=== PATIENT | male | born 1935 | race Two or more races ===

== ENCOUNTER 2020-08-25 11:33 | Outpatient (REF) | payer MEDICARE, SELFPAY ==
[2020-08-25 14:02] LABS: Hematocrit 44.7 % (42-52); Hemoglobin 14.6 g/dl (14.0-18.0); Mean Corpuscular HGB Conc 32.7 g/dl (31.0-36.0); Mean Corpuscular Hemoglobin 29.3 pg (27.0-33.0); Mean Corpuscular Volume 89.8 fL (80-98); Mean Platelet Volume 10.5 fL (9.4-12.4); Platelet Count 208 X10*3/uL (160-400); Red Blood Count 4.98 X10*6/uL (4.60-5.80); Red Cell Distribution Width 13.6 % (11.0-16.0); White Blood Count 9.2 X10*3/uL (4.8-10.8)
[2020-08-25 14:33] LABS: Alanine Aminotransferase 12 U/L (0-40); Albumin Level 3.9 g/dL (3.5-5.0); Alkaline Phosphatase 107 U/L (39-117); Anion Gap 14 (12-20); Aspartate Amino Transferase 15 U/L (5-37); Bilirubin Total 0.8 mg/dL (0.0-1.0); Blood Urea Nitrogen 19 mg/dL (9-16); Calcium 8.8 mg/dL (8.4-10.2); Carbon Dioxide 25 mmol/L (22-29); Chloride 106 mmol/L (96-108); Cholesterol 190 mg/dL; Estimated Glomerular Filt Rate > 60; Glucose Fasting 108 mg/dL (60-99); HDL Cholesterol 52 mg/dL; LDL Cholesterol Calculated 127 mg/dl; Potassium 4.5 mmol/L (3.3-5.1); Sodium 140 mmol/L (135-145); Total Protein 7.2 g/dL (6.5-8.0); Triglycerides 58 mg/dL
[2020-08-25 15:04] LABS: TSH reflex Free T4 1.68 uIU/mL (0.32-4.0)
== END 2020-08-25 11:34 | disposition home or self-care (01) ==
LOC: HO.HMGCLDS 11:33
PROVIDERS: PCP Internal Medicine; Visit Provider Internal Medicine
DX: E05.90 Thyrotoxicosis, unspecified without thyrotoxic crisis or storm (principal); I10 Essential (primary) hypertension; N40.0 Benign prostatic hyperplasia without lower urinary tract symptoms
CPT/HCPCS: 36415; 80053; 80061; 84443; 85027

== ENCOUNTER 2021-03-02 09:48 | Outpatient (REF) | payer MEDICARE, SELFPAY ==
[2021-03-02 12:01] LABS: Anion Gap 11 (12-20); Blood Urea Nitrogen 18 mg/dL (9-16); Calcium 8.9 mg/dL (8.4-10.2); Carbon Dioxide 27 mmol/L (22-29); Chloride 104 mmol/L (96-108); Estimated Glomerular Filt Rate 53; Glucose Random 118 mg/dL (60-115); Potassium 4.4 mmol/L (3.3-5.1); Sodium 138 mmol/L (135-145)
[2021-03-02 12:14] LABS: TSH reflex Free T4 3.77 uIU/mL (0.32-4.0)
== END 2021-03-02 09:49 | disposition home or self-care (01) ==
LOC: HO.HMGCLDS 09:48
PROVIDERS: PCP Internal Medicine; Visit Provider Internal Medicine
DX: E05.90 Thyrotoxicosis, unspecified without thyrotoxic crisis or storm (principal); I10 Essential (primary) hypertension; N40.0 Benign prostatic hyperplasia without lower urinary tract symptoms
CPT/HCPCS: 36415; 80048; 84443

== ENCOUNTER 2021-06-01 13:20 | Outpatient (REF) | payer MEDICARE, SELFPAY ==
--- NOTE | ~2021-06-01 | US_ITS ---
EXAMINATION: US VENOUS ULTRASOUND WITH DOPPLER LOWER EXTREMITY, RIGHT CLINICAL INFORMATION: Right leg pain COMPARISON: None TECHNIQUE: Ultrasound of the deep veins is performed from the hip to the calf with compression sonography and color and pulse Doppler assessment. Spectral analysis with color-flow imaging is performed. FINDINGS: The right common femoral, profunda and superficial femoral vein in the mid and upper thigh are patent. There is enlargement, hypoechoic material, absent flow and decreased compression of the superficial femoral vein in the distal thigh, and the popliteal vein and peroneal veins suggestive of acute DVT. The posterior tibial vein in the right calf is patent. There is no Jarquin's cyst. US/US venous duplex LE RT IMPRESSION: DVT in the right superficial femoral vein in the distal thigh, popliteal vein and peroneal veins. Findings were communicated to the nurse in Dr Gee's office Kathrin by the optometric technologist at the completion of the exam.
== END 2021-06-01 13:21 | disposition home or self-care (01) ==
LOC: HO.HMGCX 13:20
PROVIDERS: Visit Provider Internal Medicine
DX: M79.604 Pain in right leg (principal); M79.89 Other specified soft tissue disorders
CPT/HCPCS: 93971

== ENCOUNTER 2021-06-19 09:26 | Outpatient (REF) | payer MEDICARE, SELFPAY ==
[2021-06-19 11:51] LABS: Hematocrit 41.9 % (42.0-52.0); Hemoglobin 13.4 g/dl (14.0-18.0); Mean Corpuscular Hemoglobin 28.6 pg (27.0-33.0); Mean Corpuscular Volume 89.5 fL (80.0-98.0); Mean Platelet Volume 10.4 fL (9.4-12.4); Platelet Count 292 X10*3/uL (160-400); Red Blood Count 4.68 X10*6/uL (4.60-5.80); Red Cell Distribution Width 14.5 % (11.0-16.0); White Blood Count 8.5 X10*3/uL (4.8-10.8)
[2021-06-19 12:18] LABS: Alanine Aminotransferase 31 U/L (0-40); Albumin Level 3.5 g/dL (3.5-5.0); Alkaline Phosphatase 106 U/L (39-117); Anion Gap 13 (12-20); Aspartate Amino Transferase 21 U/L (5-37); Bilirubin Total 0.6 mg/dL (0.0-1.0); Blood Urea Nitrogen 17 mg/dL (9-16); Calcium 9.1 mg/dL (8.4-10.2); Carbon Dioxide 25 mmol/L (22-29); Chloride 105 mmol/L (96-108); Estimated Glomerular Filt Rate > 60; Glucose Fasting 157 mg/dL (60-99); Potassium 4.1 mmol/L (3.3-5.1); Sodium 139 mmol/L (135-145); Total Protein 7.4 g/dL (6.5-8.0)
== END 2021-06-19 09:27 | disposition home or self-care (01) ==
LOC: HO.HMGCLDS 09:26
PROVIDERS: Visit Provider Internal Medicine
DX: E05.90 Thyrotoxicosis, unspecified without thyrotoxic crisis or storm (principal); I10 Essential (primary) hypertension; I82.409 Acute embolism and thrombosis of unspecified deep veins of unspecified lower extremity
CPT/HCPCS: 36415; 80053; 85027

== ENCOUNTER 2021-08-31 11:01 | Outpatient (REF) | payer MEDICARE, SELFPAY ==
[2021-08-31 13:49] LABS: Hematocrit 42.5 % (42.0-52.0); Hemoglobin 14.1 g/dl (14.0-18.0); Mean Corpuscular HGB Conc 33.2 g/dl (31.0-36.0); Mean Corpuscular Hemoglobin 29.6 pg (27.0-33.0); Mean Corpuscular Volume 89.3 fL (80.0-98.0); Mean Platelet Volume 10.4 fL (9.4-12.4); Platelet Count 209 X10*3/uL (160-400); Red Blood Count 4.76 X10*6/uL (4.60-5.80); White Blood Count 8.6 X10*3/uL (4.8-10.8)
[2021-08-31 13:57] LABS: Alanine Aminotransferase 12 U/L (0-40); Albumin Level 3.8 g/dL (3.5-5.0); Alkaline Phosphatase 88 U/L (39-117); Anion Gap 11 (12-20); Aspartate Amino Transferase 16 U/L (5-37); Bilirubin Total 0.7 mg/dL (0.0-1.0); Blood Urea Nitrogen 21 mg/dL (9-16); Calcium 9.2 mg/dL (8.4-10.2); Carbon Dioxide 25 mmol/L (22-29); Chloride 106 mmol/L (96-108); Cholesterol 208 mg/dL; Estimated Glomerular Filt Rate 56; Glucose Fasting 116 mg/dL (60-99); HDL Cholesterol 54 mg/dL; LDL Cholesterol Calculated 142 mg/dl; Potassium 4.2 mmol/L (3.3-5.1); Sodium 138 mmol/L (135-145); Total Protein 7.3 g/dL (6.5-8.0); Triglycerides 63 mg/dL
[2021-08-31 14:04] LABS: Estimated Average Glucose 120 mg/dL; Hemoglobin A1c % 5.8 %
[2021-08-31 14:23] LABS: TSH reflex Free T4 2.52 uIU/mL (0.32-4.0)
== END 2021-08-31 11:02 | disposition home or self-care (01) ==
LOC: HO.HMGCLDS 11:01
PROVIDERS: Visit Provider Internal Medicine
DX: E05.90 Thyrotoxicosis, unspecified without thyrotoxic crisis or storm (principal); I10 Essential (primary) hypertension
CPT/HCPCS: 36415; 80053; 80061; 83036; 84443; 85027

== ENCOUNTER 2022-03-08 11:45 | Outpatient (REF) | payer MEDICARE, SELFPAY ==
[2022-03-08 14:18] LABS: Estimated Average Glucose 117 mg/dL; Hemoglobin A1c % 5.7 %
[2022-03-08 14:22] LABS: Alanine Aminotransferase 16 U/L (0-40); Alkaline Phosphatase 105 U/L (39-117); Anion Gap 15 (12-20); Aspartate Amino Transferase 16 U/L (5-37); Bilirubin Total 0.8 mg/dL (0.0-1.0); Blood Urea Nitrogen 22 mg/dL (9-16); Calcium 8.9 mg/dL (8.4-10.2); Carbon Dioxide 24 mmol/L (22-29); Chloride 104 mmol/L (96-108); Cholesterol 215 mg/dL; Estimated Glomerular Filt Rate 56; Glucose Fasting 107 mg/dL (60-99); HDL Cholesterol 57 mg/dL; LDL Cholesterol Calculated 146 mg/dl; Potassium 4.5 mmol/L (3.3-5.1); Sodium 138 mmol/L (135-145); Total Protein 7.6 g/dL (6.5-8.0); Triglycerides 60 mg/dL
[2022-03-08 14:44] LABS: TSH reflex Free T4 2.38 uIU/mL (0.32-4.0)
== END 2022-03-08 11:46 | disposition home or self-care (01) ==
LOC: HO.HMGCLDS 11:45
PROVIDERS: PCP Internal Medicine; Visit Provider Internal Medicine
DX: Z00.00 Encounter for general adult medical examination without abnormal findings (principal); E05.90 Thyrotoxicosis, unspecified without thyrotoxic crisis or storm; I10 Essential (primary) hypertension
CPT/HCPCS: 36415; 80053; 80061; 83036; 84443

== ENCOUNTER 2022-09-03 08:33 | Outpatient (REF) | payer MEDICARE, SELFPAY ==
[2022-09-03 11:50] LABS: Estimated Average Glucose 123 mg/dL; Hemoglobin A1C 163.8212 umol/L; Hemoglobin A1c % 5.9 %
[2022-09-03 12:21] LABS: Alanine Aminotransferase 14 U/L (0-40); Alkaline Phosphatase 108 U/L (39-117); Anion Gap 15 (12-20); Aspartate Amino Transferase 15 U/L (5-37); Bilirubin Total 0.7 mg/dL (0.0-1.0); Blood Urea Nitrogen 22 mg/dL (9-16); Calcium 9.2 mg/dL (8.4-10.2); Carbon Dioxide 23 mmol/L (22-29); Chloride 106 mmol/L (96-108); Cholesterol 217 mg/dL; Estimated Glomerular Filt Rate 57; Glucose Fasting 118 mg/dL (60-99); HDL Cholesterol 57 mg/dL; LDL Cholesterol Calculated 147 mg/dl; Potassium 4.5 mmol/L (3.3-5.1); Sodium 139 mmol/L (135-145); TSH reflex Free T4 3.35 uIU/mL (0.32-4.0); Total Protein 7.5 g/dL (6.5-8.0); Triglycerides 65 mg/dL
== END 2022-09-03 08:34 | disposition home or self-care (01) ==
LOC: HO.HMGCLDS 08:33
PROVIDERS: PCP Internal Medicine; Visit Provider Internal Medicine
DX: Z00.00 Encounter for general adult medical examination without abnormal findings (principal); E05.90 Thyrotoxicosis, unspecified without thyrotoxic crisis or storm; I10 Essential (primary) hypertension; R73.9 Hyperglycemia, unspecified
CPT/HCPCS: 36415; 80053; 80061; 83036; 84443

== ENCOUNTER 2023-03-11 07:43 | Outpatient (REF) | payer MEDICARE, SELFPAY ==
[2023-03-11 11:22] LABS: MANUAL DIFF FLAG NO
[2023-03-11 11:44] LABS: Basophils Absolute Auto 0.1 X10*3/uL (0.0-0.2); Basophils Percent Auto 1.2 % (0-2); Eosinophils Percent Auto 10.6 % (0-4); Hematocrit 44.8 % (42.0-52.0); Hemoglobin 14.5 g/dl (14.0-18.0); Imm Gran Abs Auto 0.05 X10*3/uL (0.00-0.03); Imm Gran Pct Auto 0.5 % (0.0-0.4); Lymphocytes Absolute Auto 2.5 X10*3/uL (1.2-4.9); Lymphocytes Percent Auto 25.8 % (20-40); Mean Corpuscular HGB Conc 32.4 g/dl (31.0-36.0); Mean Corpuscular Hemoglobin 29.1 pg (27.0-33.0); Mean Corpuscular Volume 89.8 fL (80.0-98.0); Mean Platelet Volume 10.1 fL (9.4-12.4); Monocytes Absolute Auto 0.9 X10*3/uL (0.1-1.2); Monocytes Percent Auto 9.7 % (2-11); Neutrophils Absolute Auto 5.1 x10*3/uL (2.0-8.3); Neutrophils Percent Auto 52.2 % (45-73); Platelet Count 215 X10*3/uL (160-400); Red Blood Count 4.99 X10*6/uL (4.60-5.80); Red Cell Distribution Width 13.3 % (11.0-16.0); White Blood Count 9.7 X10*3/uL (4.8-10.8)
[2023-03-11 11:54] LABS: Estimated Average Glucose 117 mg/dL; Hemoglobin A1c % 5.7 % (<6.0)
[2023-03-11 12:06] LABS: Alanine Aminotransferase 13 U/L (0-40); Albumin Level 3.8 g/dL (3.5-5.0); Alkaline Phosphatase 105 U/L (39-117); Anion Gap 11 (12-20); Aspartate Amino Transferase 17 U/L (5-37); Bilirubin Total 0.6 mg/dL (0.0-1.0); Blood Urea Nitrogen 22 mg/dL (9-16); Calcium 9.1 mg/dL (8.4-10.2); Carbon Dioxide 26 mmol/L (22-29); Chloride 107 mmol/L (96-108); Cholesterol 169 mg/dL (<200); Estimated Glomerular Filt Rate 57; Glucose Fasting 116 mg/dL (60-99); HDL Cholesterol 55 mg/dL (>40); LDL Cholesterol Calculated 101 mg/dL (<100); Potassium 4.5 mmol/L (3.3-5.1); Sodium 139 mmol/L (135-145); Total Protein 7.7 g/dL (6.5-8.0); Triglycerides 69 mg/dL (<150)
[2023-03-11 12:33] LABS: TSH reflex Free T4 4.72 uIU/mL (0.32-4.0)
[2023-03-11 13:03] LABS: Free T4 (Free Thyroxine) 0.98 ng/dL (0.71-1.85)
== END 2023-03-11 07:44 | disposition home or self-care (01) ==
LOC: HO.HMGCLDS 07:43
PROVIDERS: PCP Internal Medicine; Visit Provider Internal Medicine
DX: R73.9 Hyperglycemia, unspecified (principal); E05.90 Thyrotoxicosis, unspecified without thyrotoxic crisis or storm; E78.5 Hyperlipidemia, unspecified; I10 Essential (primary) hypertension
CPT/HCPCS: 36415; 80053; 80061; 83036; 84439; 84443; 85025

== ENCOUNTER 2023-03-15 08:23 | Outpatient (AMB) | payer MEDICARE, SELFPAY ==
[2023-03-15 08:30] VITALS: BP 130/80; PULSE 72; O2SAT 96; BMI 28.8
--- NOTE | 2023-03-15 08:30 | A.OFFPC_ITS ---
Vital Signs 03/15/23 08:30 Height 5 ft 7 in Weight 184 lb BMI 28.8 BP 130/80 Blood Pressure Location Lt brachial Position Sitting Pulse 72 Pulse Source Pulse Oximeter Pulse Oximetry (%) 96 Oxygen Delivery Method Room Air Intake Visit Reasons: Annual Physical Allergies No Known Allergies Allergy (Verified 03/08/22 10:54) Medication List - Last Reconciled 03/15/23 by Elizabeth Gee MD amlodipine 10 mg PO DAILY apixaban (Eliquis) 5 mg PO BID methimazole 5 mg PO DAILY pravastatin 20 mg PO DAILY tamsulosin 0.4 mg PO DAILY Tobacco use date assessed: 06/09/21 HPI Annual Physical HPI Details Pt presents for PE. COUNTS INCLUDE 234 BEDS AT THE [facility] Medical History (Updated 03/15/23 @ 09:00 by Elizabeth Gee MD) DVT (deep venous thrombosis) Pain and swelling of right lower extremity Annual physical exam Hyperthyroidism BPH (benign prostatic hyperplasia) HTN (hypertension) Surgical History No pertinent past surgical history Family History Father No problems noted. Mother No problems noted. Social History Housing: House Patient Tobacco Use Status: Former Tobacco user (15 years ago) e-Cigarette/Vaping Use: Never Used Current occupational status: retired Cognitive needs: No Hearing needs: No Vision needs: No Questionnaire Thrive Questionnaire Date Thrive assessed: 09/08/22 TORI-7 AMB Questionnaire TORI-7 Date TORI - 7 assessed: 09/08/22 Source: Developed by Drs. Liban Lutz, Jackelyn Mckinley, Prasad Maria and colleagues, with an educational cruz from [employer]. Review of Systems Const All systems reviewed & are unremarkable except as noted in HPI and below Reports no additional complaints Eyes Reports no additional complaints ENT Reports no additional complaints Card Reports no additional complaints Resp Reports no additional complaints GI Reports no additional complaints Reports no additional complaints Physical exam (Primary Care) Vital Signs: Last Vital Signs Pulse 72 03/15/23 08:30 BP 130/80 03/15/23 08:30 Pulse Ox 96 03/15/23 08:30 Oxygen Delivery Method Room Air 03/15/23 08:30 BMI result Body Mass Index 28.8 Tobacco/Smoking Status: Tobacco use Status Tobacco use date assessed 06/09/21 03/15/23 08:32 Patient Tobacco Use Status Former Tobacco user (15 03/15/23 08:32 years ago) e-Cigarette/Vaping Use Never Used 03/15/23 08:32 Thrive Assessment: Date of Thrive Assessment Date Thrive assessed 09/08/22 03/15/23 08:32 Const General: no acute distress HENMT Head: Yes normal to inspection Ears: hearing grossly normal bilaterally Mouth: Normal oral and palatal mucosa present Neck Neck: Yes no lymphadenopathy and Yes supple Resp Effort & Inspection: normal respiratory effort Auscultation: clear to auscultation bilaterally Cardio Rhythm: regular rhythm Heart sounds: S1 normal heart sound present and S2 normal heart sound present GI Inspection: Yes normal to inspection Palpation (GI): Soft to palpation Percussion: Yes normal to percussion Auscultation: normal bowel sounds Assessment and Plan Assessment & Plan (1) Hypothyroidism: Code(s): E03.9 - Hypothyroidism, unspecified Plan: PATIENT WAS ADVISED TO TAKE HALF A TABLET OF METHIMAZOLE FOR 2 MONTHS AND REPEAT TSH (2) Hyperlipidemia: Code(s): E78.5 - Hyperlipidemia, unspecified Plan: Continue pravastatin (3) Hyperglycemia: Code(s): R73.9 - Hyperglycemia, unspecified Plan: A1c is 5.7, continue ADA diet regular physical activity follow-up in 6 months with a fasting labs before (4) Annual physical exam: Code(s): Z00.00 - Encounter for general adult medical examination without abnormal findings Plan: Well-balanced diet regular physical activity discussed with the patient (5) HTN (hypertension): Code(s): I10 - Essential (primary) hypertension Plan: Continue amlodipine Orders: Orders TSH reflex Free T4 2 Months E03.9 - Hypothyroidism, unspecified Comprehensive [place]. Panel Fast 6 Months E03.9 - Hypothyroidism, unspecified, E78.5 - Hyperlipidemia, unspecified, I10 - Essential (primary) hypertension, R73.9 - Hyperglycemia, unspecified Lipid Panel 6 Months E03.9 - Hypothyroidism, unspecified, E78.5 - Hyperlipidemia, unspecified, I10 - Essential (primary) hypertension, R73.9 - Hyperglycemia, unspecified Hemoglobin A1c 6 Months E03.9 - Hypothyroidism, unspecified, E78.5 - Hyperlipidemia, unspecified, I10 - Essential (primary) hypertension, R73.9 - Hyperglycemia, unspecified Complete Blood Count Auto Diff 6 Months E03.9 - Hypothyroidism, unspecified, E78.5 - Hyperlipidemia, unspecified, I10 - Essential (primary) hypertension, R73.9 - Hyperglycemia, unspecified TSH reflex Free T4 6 Months E03.9 - Hypothyroidism, unspecified, E78.5 - Hyper lipidemia, unspecified, I10 - Essential (primary) hypertension, R73.9 - Hyperglycemia, unspecified Coding Level of Care Code Est Pt Prev Care >65y(74448) Diagnoses Hypothyroidism E03.9 Hyperlipidemia E78.5 Hyperglycemia R73.9 Annual physical exam Z00.00 HTN (hypertension) I10
== END 2023-03-15 09:21 | disposition home or self-care (01) ==
PROVIDERS: Visit Provider Internal Medicine
DX: Z00.00 Encounter for general adult medical examination without abnormal findings (principal); E03.9 Hypothyroidism, unspecified; E78.5 Hyperlipidemia, unspecified; R73.9 Hyperglycemia, unspecified; I10 Essential (primary) hypertension
CPT/HCPCS: 99397

== ENCOUNTER 2023-05-30 10:27 | Outpatient (REF) | payer MEDICARE, SELFPAY | END 2023-05-30 10:28 | disposition home or self-care (01) | LOC: HO.HMGCLDS 10:27 | PROVIDERS: PCP Internal Medicine; Visit Provider Internal Medicine | DX: E03.9 Hypothyroidism, unspecified (principal) | CPT/HCPCS: 36415; 84443 ==

== ENCOUNTER 2023-09-09 08:30 | Outpatient (REF) | payer MEDICARE, SELFPAY ==
[2023-09-09 10:39] LABS: MANUAL DIFF FLAG NO
[2023-09-09 10:52] LABS: Basophils Absolute Auto 0.2 X10*3/uL (0.0-0.2); Basophils Percent Auto 1.8 % (0-2); Eosinophils Absolute Auto 1.2 X10*3/uL (0.0-0.4); Eosinophils Percent Auto 14.5 % (0-4); Hematocrit 43.9 % (42.0-52.0); Hemoglobin 14.5 g/dl (14.0-18.0); Imm Gran Abs Auto 0.05 X10*3/uL (0.00-0.03); Imm Gran Pct Auto 0.6 % (0.0-0.4); Lymphocytes Absolute Auto 2.4 X10*3/uL (1.2-4.9); Lymphocytes Percent Auto 28.9 % (20-40); Mean Corpuscular Hemoglobin 29.8 pg (27.0-33.0); Mean Corpuscular Volume 90.3 fL (80.0-98.0); Mean Platelet Volume 10.7 fL (9.4-12.4); Monocytes Absolute Auto 0.8 X10*3/uL (0.1-1.2); Monocytes Percent Auto 9.6 % (2-11); Neutrophils Absolute Auto 3.7 x10*3/uL (2.0-8.3); Neutrophils Percent Auto 44.6 % (45-73); Platelet Count 194 X10*3/uL (160-400); Red Blood Count 4.86 X10*6/uL (4.60-5.80); Red Cell Distribution Width 13.8 % (11.0-16.0); White Blood Count 8.3 X10*3/uL (4.8-10.8)
[2023-09-09 11:11] LABS: Alanine Aminotransferase 13 U/L (0-40); Albumin Level 3.7 g/dL (3.5-5.0); Alkaline Phosphatase 93 U/L (39-117); Anion Gap 12 (12-20); Aspartate Amino Transferase 14 U/L (5-37); Bilirubin Total 0.8 mg/dL (0.0-1.0); Blood Urea Nitrogen 23 mg/dL (9-16); Calcium 9.1 mg/dL (8.4-10.2); Carbon Dioxide 23 mmol/L (22-29); Chloride 108 mmol/L (96-108); Cholesterol 158 mg/dL (<200); Estimated Glomerular Filt Rate 51; Glucose Fasting 111 mg/dL (60-99); HDL Cholesterol 55 mg/dL (>40); LDL Cholesterol Calculated 88 mg/dL (<100); Potassium 4.4 mmol/L (3.3-5.1); Sodium 139 mmol/L (135-145); Total Protein 7.4 g/dL (6.5-8.0); Triglycerides 76 mg/dL (<150)
[2023-09-09 11:15] LABS: Estimated Average Glucose 123 mg/dL; Hemoglobin A1C 148.9622 umol/L; Hemoglobin A1c % 5.9 % (<6.0)
[2023-09-09 11:30] LABS: TSH reflex Free T4 1.73 uIU/mL (0.32-4.0)
== END 2023-09-09 08:31 | disposition home or self-care (01) ==
LOC: HO.HMGCLDS 08:30
PROVIDERS: PCP Internal Medicine; Visit Provider Internal Medicine
DX: E03.9 Hypothyroidism, unspecified (principal); E78.5 Hyperlipidemia, unspecified; R73.9 Hyperglycemia, unspecified; I10 Essential (primary) hypertension
CPT/HCPCS: 36415; 80053; 80061; 83036; 84443; 85025

== ENCOUNTER 2023-09-15 11:57 | Outpatient (AMB) | payer MEDICARE, SELFPAY ==
--- NOTE | 2023-09-15 12:00 | MHC.PC.OV ---
Vital Signs 09/15/23 12:19 Height 5 ft 7 in Weight 189 lb BMI 29.6 BP 100/60 Blood Pressure Location Rt brachial Position Sitting Pulse 69 Pulse Source Pulse Oximeter Pulse Oximetry (%) 95 Oxygen Delivery Method Room Air Intake Visit Reasons: 6 month follow up Intake Note: Pt is here today for his 6mo. f/u Allergies No Known Allergies Allergy (Verified 03/08/22 10:54) Medication List - Last Reconciled 09/15/23 by Elizabeth Gee MD amlodipine 10 mg PO DAILY apixaban (Eliquis) 5 mg PO BID methimazole 5 mg PO DAILY pravastatin 20 mg PO DAILY tamsulosin 0.4 mg PO DAILY Tobacco use date assessed: 09/15/23 Fall risk assessment: No Falls in past year Last assessed Fall Risk: 09/15/23 Dental Screening Dental Screen Date: 09/15/23 Did you have a dental visit in the last 12 months?: Yes Did you have a dental problem in the last 6 months where you did not have access to dental care?: No Was dental information given to patient?: Patient has dentist HPI 6 month follow up HPI Details Pt presents for f/u HTN, hyperlipid, hyperthyroid, stable on meds. [facility] Medical History (Updated 09/15/23 @ 13:05 by Elizabeth Gee MD) DVT (deep venous thrombosis) Pain and swelling of right lower extremity Annual physical exam Hyperthyroidism BPH (benign prostatic hyperplasia) HTN (hypertension) Surgical History No pertinent past surgical history Family History Father No problems noted. Mother No problems noted. Social History Housing: House Patient Tobacco Use Status: Former Tobacco user (15 years ago) e-Cigarette/Vaping Use: Never Used Current occupational status: retired Cognitive needs: No Hearing needs: No Vision needs: No Questionnaire PHQ-9 Over the last 2 weeks, how often have you been bothered by any of the following problems? 1. Little interest or pleasure in doing things: not at all 2. Feeling down, depressed, or hopeless: not at all 3. Trouble falling or staying asleep, or sleeping too much: not at all 4. Feeling tired or having little energy: not at all 5. Poor appetite or overeating: not at all 6. Feeling bad about yourself - or that you are a failure or have let yourself or your family down: not at all 7. Trouble concentrating on things, such as reading the newspaper or watching television: not at all 8. Moving or speaking so slowly that other people could have noticed. Or the opposite - being so fidgety or restless that you have been moving around a lot more than usual: not at all 9. Thoughts that you would be better off or of hurting yourself in some way: not at all Total score: 0 Depression Screening Interpretation: Negative Depression Screening Done: Yes Source: Developed by Drs. Liban Lutz, Jackelyn Mckinley, Prasad Maria and colleagues, with an educational cruz from [employer]. Thrive Questionnaire Date Thrive assessed: 09/15/23 I am a: Patient What is your living situation today?: I have a steady place to live Within the past 12 months, did the food you bought not last and you didn't have the money to get more?: Never true Within the past 12 months, did you worry whether your food would run out before you got money to buy more?: Never true Do you have trouble paying for medicines?: No Do you have trouble getting transportation to medical appointments?: No Do you have trouble paying your heating and electricity bill?: No Do you have trouble taking care of your child, family member or friend?: No Do you have trouble with day-to-day activities such as bathing, preparing meals, shopping, managing finances, etc.?: No Are you currently unemployed and looking for a job?: No Are you interested in more education?: No Please select the resources that you would like help with: None THRIVE Score: 0 AUDIT C Alcohol Use Questionnaire (AUDIT-C) 1. How often do you have a drink containing alcohol?: Never 3. How often do you have six or more drinks on one occasion?: Never Total Score: 0 TORI-7 AMB Questionnaire TORI-7 Date TORI - 7 assessed: 09/15/23 Feeling nervous, anxious, or on edge: 0 = Not at all Not being able to stop or control worryin = Not at all Worrying too much about different things: 0 = Not at all Trouble relaxin = Not at all Being so restless that it is hard to sit still: 0 = Not at all Becoming easily annoyed or irritable: 0 = Not at all Feeling afraid as if something awful might happen: 0 = Not at all Total TORI-7 score (0-4 normal; 5-9 mild; 10-14 moderate; 15-21 severe): 0 Source: Developed by Drs. Liban Lutz, Jackelyn Mckinley, Prasad Maria and colleagues, with an educational cruz from [employer]. Review of Systems Const All systems reviewed & are unremarkable except as noted in HPI and below Reports no additional complaints Eyes Reports no additional complaints ENT Reports no additional complaints Card Reports no additional complaints Resp Reports no additional complaints GI Reports no additional complaints Reports no additional complaints Physical exam (Primary Care) Vital Signs: Last Vital Signs Pulse 69 09/15/23 12:19 BP 100/60 09/15/23 12:19 Pulse Ox 95 09/15/23 12:19 Oxygen Delivery Method Room Air 09/15/23 12:19 BMI result Body Mass Index 29.6 Tobacco/Smoking Status: Tobacco use Status Tobacco use date assessed 09/15/23 09/15/23 12:21 Patient Tobacco Use Status Former Tobacco user (09/15/23 12:00 years ago) e-Cigarette/Vaping Use Never Used 09/15/23 12:00 PHQ-9: PHQ-9 Score PHQ-9: Total score 0 09/15/23 12:57 Depression Screening Interpretation: Negative Thrive Assessment: Date of Thrive Assessment Date Thrive assessed 09/08/22 09/15/23 12:00 Const General: no acute distress HENMT Head: Yes normal to inspection Face and sinus: Yes normal facial exam Neck Neck: Yes supple Resp Effort & Inspection: normal respiratory effort Auscultation: clear to auscultation bilaterally Cardio Rhythm: regular rhythm Heart sounds: S1 normal heart sound present and S2 normal heart sound present GI Inspection: Yes normal to inspection Palpation (GI): Soft to palpation Percussion: Yes normal to percussion Assessment and Plan Assessment & Plan (1) Hyperglycemia: Code(s): R73.9 - Hyperglycemia, unspecified Plan: A1c is 5.9, continue ADA diet regular exercise (2) Hyperlipidemia: Code(s): E78.5 - Hyperlipidemia, unspecified Plan: Continue statin (3) Hyperthyroidism: Code(s): E05.90 - Thyrotoxicosis, unspecified without thyrotoxic crisis or storm Plan: Continue methimazole (4) HTN (hypertension): Code(s): I10 - Essential (primary) hypertension Plan: Continue amlodipine (5) DVT (deep venous thrombosis): Comment: HX of recurrent DVT, 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 Panel Fast 6 Months E03.9 - Hypothyroidism, unspecified, E78.5 - Hyperlipidemia, unspecified, R73.9 - Hyperglycemia, unspecified Hemoglobin A1c 6 Months E03.9 - Hypothyroidism, unspecified, E78.5 - Hyperlipidemia, unspecified, R73.9 - Hyperglycemia, unspecified TSH reflex Free T4 6 Months E03.9 - Hypothyroidism, unspecified, E78.5 - Hyperlipidemia, unspecified, R73.9 - Hyperglycemia, unspecified Coding Level of Care Code Est Pt Level 4 (59535) Diagnoses Hyperglycemia R73.9 Hyperlipidemia E78.5 Hyperthyroidism E05.90 HTN (hypertension) I10 DVT (deep venous thrombosis) I82.409
[2023-09-15 12:19] VITALS: BP 100/60; PULSE 69; O2SAT 95; BMI 29.6
== END 2023-09-15 13:12 | disposition home or self-care (01) ==
PROVIDERS: PCP Internal Medicine; Visit Provider Internal Medicine
DX: R73.9 Hyperglycemia, unspecified (principal); I82.409 Acute embolism and thrombosis of unspecified deep veins of unspecified lower extremity; E78.5 Hyperlipidemia, unspecified; E05.90 Thyrotoxicosis, unspecified without thyrotoxic crisis or storm; I10 Essential (primary) hypertension
CPT/HCPCS: 99214

== ENCOUNTER 2024-04-04 08:33 | Outpatient (REF) | payer MEDICARE, SELFPAY ==
[2024-04-04 10:40] LABS: Estimated Average Glucose 120 mg/dL; Hemoglobin A1C 147.0066 umol/L; Hemoglobin A1c % 5.8 % (<6.0)
[2024-04-04 11:17] LABS: Alanine Aminotransferase 15 U/L (0-40); Albumin Level 3.8 g/dL (3.5-5.0); Alkaline Phosphatase 97 U/L (39-117); Anion Gap 10 (12-20); Aspartate Amino Transferase 21 U/L (5-37); Bilirubin Total 0.7 mg/dL (0.0-1.0); Blood Urea Nitrogen 17 mg/dL (9-16); Calcium 9.1 mg/dL (8.4-10.2); Carbon Dioxide 24 mmol/L (22-29); Chloride 110 mmol/L (96-108); Estimated Glomerular Filt Rate 59; Glucose Fasting 122 mg/dL (60-99); Potassium 4.2 mmol/L (3.3-5.1); Sodium 140 mmol/L (135-145); Total Protein 7.5 g/dL (6.5-8.0)
== END 2024-04-04 08:34 | disposition home or self-care (01) ==
LOC: HO.HMGCLDS 08:33
PROVIDERS: PCP Internal Medicine; Visit Provider Internal Medicine
DX: E03.9 Hypothyroidism, unspecified (principal); E78.5 Hyperlipidemia, unspecified; R73.9 Hyperglycemia, unspecified
CPT/HCPCS: 36415; 80053; 83036; 84443

== ENCOUNTER 2024-04-11 11:30 | Outpatient (AMB) | payer MEDICARE, SELFPAY ==
[2024-04-11 11:45] VITALS: BP 106/66; PULSE 65; O2SAT 98; BMI 29.1
--- NOTE | 2024-04-11 11:45 | MHC.PC.OV ---
Vital Signs 04/11/24 11:45 Height 5 ft 7 in Weight 186 lb BMI 29.1 BP 106/66 Blood Pressure Location Rt brachial Position Sitting Pulse 65 Pulse Source Pulse Oximeter Pulse Oximetry (%) 98 Oxygen Delivery Method Room Air Intake Visit Reasons: Annual PE - see comments Allergies No Known Allergies Allergy (Verified 04/11/24 11:51) Medication List - Last Reconciled 04/11/24 by Elizabeth Gee MD amlodipine 10 mg PO DAILY apixaban (Eliquis) 5 mg PO BID methimazole 5 mg PO DAILY pravastatin 20 mg PO DAILY tamsulosin 0.4 mg PO DAILY Tobacco use date assessed: 04/11/24 Fall risk assessment: No Falls in past year Last assessed Fall Risk: 04/11/24 Dental Screening Dental Screen Date: 09/15/23 HPI Annual PE - see comments HPI Details Pt presents for PE. [facility] Medical History DVT (deep venous thrombosis) Pain and swelling of right lower extremity Annual physical exam Hyperthyroidism BPH (benign prostatic hyperplasia) HTN (hypertension) Surgical History No pertinent past surgical history Family History Father No problems noted. Mother No problems noted. Social History Housing: House Patient Tobacco Use Status: Former Tobacco user (15 years ago) e-Cigarette/Vaping Use: Never Used service: No Current occupational status: retired Cognitive needs: No Hearing needs: No Vision needs: No Questionnaire PHQ-9 Over the last 2 weeks, how often have you been bothered by any of the following problems? 1. Little interest or pleasure in doing things: not at all 2. Feeling down, depressed, or hopeless: not at all 3. Trouble falling or staying asleep, or sleeping too much: not at all 4. Feeling tired or having little energy: not at all 5. Poor appetite or overeating: not at all 6. Feeling bad about yourself - or that you are a failure or have let yourself or your family down: not at all 7. Trouble concentrating on things, such as reading the newspaper or watching television: not at all 8. Moving or speaking so slowly that other people could have noticed. Or the opposite - being so fidgety or restless that you have been moving around a lot more than usual: not at all 9. Thoughts that you would be better off or of hurting yourself in some way: not at all Total score: 0 Depression Screening Interpretation: Negative Depression Screening Done: Yes 82224 - PHQ-9 Billing: Yes Source: Developed by Drs. Liban Lutz, Jackelyn Mckinley, Prasad Maria and colleagues, with an educational cruz from [employer]. Thrive Questionnaire Date Thrive assessed: 04/11/24 I am a: Patient What is your living situation today?: I have a steady place to live Within the past 12 months, did the food you bought not last and you didn't have the money to get more?: Never true Within the past 12 months, did you worry whether your food would run out before you got money to buy more?: Never true Do you have trouble paying for medicines?: No Do you have trouble getting transportation to medical appointments?: No Do you have trouble paying your heating and electricity bill?: No Do you have trouble taking care of your child, family member or friend?: No Do you have trouble with day-to-day activities such as bathing, preparing meals, shopping, managing finances, etc.?: No Are you currently unemployed and looking for a job?: No Are you interested in more education?: No THRIVE Score: 0 TORI-7 AMB Questionnaire TORI-7 Date TORI - 7 assessed: 04/11/24 Feeling nervous, anxious, or on edge: 0 = Not at all Not being able to stop or control worryin = Not at all Worrying too much about different things: 0 = Not at all Trouble relaxin = Not at all Being so restless that it is hard to sit still: 0 = Not at all Becoming easily annoyed or irritable: 0 = Not at all Feeling afraid as if something awful might happen: 0 = Not at all Total TORI-7 score (0-4 normal; 5-9 mild; 10-14 moderate; 15-21 severe): 0 Source: Developed by Abel Wynnet B.W. Elías, Prasad Maria and colleagues, with an educational cruz from [employer]. TORI-7 Assessment Billing TORI-7 Assessment Tool: TORI-7 Assessment 12264 Review of Systems Const All systems reviewed & are unremarkable except as noted in HPI and below Eyes Reports no additional complaints ENT Reports no additional complaints Card Reports no additional complaints Resp Reports no additional complaints GI Reports no additional complaints Reports no additional complaints Physical exam (Primary Care) Vital Signs: Last Vital Signs Pulse 65 04/11/24 11:45 BP 106/66 04/11/24 11:45 Pulse Ox 98 04/11/24 11:45 Oxygen Delivery Method Room Air 04/11/24 11:45 BMI result Body Mass Index 29.1 Tobacco/Smoking Status: Tobacco use Status Tobacco use date assessed 04/11/24 04/11/24 11:52 Patient Tobacco Use Status Former Tobacco user (15 04/11/24 11:47 years ago) e-Cigarette/Vaping Use Never Used 04/11/24 11:47 PHQ-9: PHQ-9 Score PHQ-9: Total score 0 04/11/24 11:56 Depression Screening Interpretation: Negative Thrive Assessment: Date of Thrive Assessment Date Thrive assessed 04/11/24 04/11/24 11:56 Const General: no acute distress HENMT Head: Yes normal to inspection Ears: hearing grossly normal bilaterally General nose exam: Normal external nose present Face and sinus: Yes normal facial exam Mouth: Normal oral and palatal mucosa present Eyes General: appearance normal, both eyes and all related structures Neck Neck: Yes no lymphadenopathy and Yes supple Resp Effort & Inspection: normal respiratory effort Auscultation: clear to auscultation bilaterally Cardio Rhythm: regular rhythm Heart sounds: S1 normal heart sound present and S2 normal heart sound present GI Inspection: Yes normal to inspection Palpation (GI): Soft to palpation Percussion: Yes normal to percussion Auscultation: normal bowel sounds Coding Level of Care Code Est Pt Prev Care >65y(25004) Diagnoses HTN (hypertension) I10 Hyperthyroidism E05.90 Hyperglycemia R73.9 Hyperlipidemia E78.5 DVT (deep venous thrombosis) I82.409 Additional Codes TORI-7 Assessment Billing - TORI-7 Assessment Tool: TORI-7 Assessment 63888 ([id number]) PHQ-9 - 17000 - PHQ-9 Billing: Yes ([id number]) Assessment & Plan Assessment & Plan (1) HTN (hypertension): Code(s): I10 - Essential (primary) hypertension Category: Medical Plan: cont meds (2) Hyperthyroidism: Code(s): E05.90 - Thyrotoxicosis, unspecified without thyrotoxic crisis or storm Category: Medical Plan: Continue methimazole monitor TSH (3) Hyperglycemia: Code(s): R73.9 - Hyperglycemia, unspecified Category: Medical Plan: Continue ADA diet monitor A1c (4) Hyperlipidemia: Code(s): E78.5 - Hyperlipidemia, unspecified Category: Medical Plan: Continue statin (5) DVT (deep venous thrombosis): Comment: HX of recurrent DVT, 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 Panel Fast 6 Months E05.90 - Thyrotoxicosis, unspecified without thyrotoxic crisis or storm, E78.5 - Hyperlipidemia, unspecified, I10 - Essential (primary) hypertension, R73.9 - Hyperglycemia, unspecified Lipid Panel 6 Months E05.90 - Thyrotoxicosis, unspecified without thyrotoxic crisis or storm, E78.5 - Hyperlipidemia, unspecified, I10 - Essential (primary) hypertension, R73.9 - Hyperglycemia, unspecified TSH reflex Free T4 6 Months E05.90 - Thyrotoxicosis, unspecified without thyrotoxic crisis or storm, E78.5 - Hyperlipidemia, unspecified, I10 - Essential (primary) hypertension, R73.9 - Hyperglycemia, unspecified Hemoglobin A1c 6 Months R73.9 - Hyperglycemia, unspecified Medications: Refilled methimazole 5 mg PO DAILY 90 tabs 3RF amlodipine 10 mg PO DAILY 90 tabs 3RF apixaban (Eliquis) 5 mg PO BID 180 tabs 2RF pravastatin 20 mg PO DAILY 90 tabs 3RF tamsulosin 0.4 mg PO DAILY 90 caps 3RF
== END 2024-04-11 12:22 | disposition home or self-care (01) ==
PROVIDERS: PCP Internal Medicine; Visit Provider Internal Medicine
DX: Z00.00 Encounter for general adult medical examination without abnormal findings (principal); I10 Essential (primary) hypertension; I82.409 Acute embolism and thrombosis of unspecified deep veins of unspecified lower extremity; E05.90 Thyrotoxicosis, unspecified without thyrotoxic crisis or storm; R73.9 Hyperglycemia, unspecified; E78.5 Hyperlipidemia, unspecified

== ENCOUNTER → 2024-04-11 11:30 | Outpatient (BNVA) | payer MEDICARE, SELFPAY | PROVIDERS: PCP Internal Medicine; Visit Provider Internal Medicine | DX: Z00.00 Encounter for general adult medical examination without abnormal findings (principal); I10 Essential (primary) hypertension; E05.90 Thyrotoxicosis, unspecified without thyrotoxic crisis or storm; R73.9 Hyperglycemia, unspecified; E78.5 Hyperlipidemia, unspecified; Z86.718 Personal history of other venous thrombosis and embolism | CPT/HCPCS: 96127; 99397 ==

== ENCOUNTER 2024-10-05 08:15 | Outpatient (REF) | payer MEDICARE, SELFPAY ==
[2024-10-05 10:12] LABS: MANUAL DIFF FLAG NO
[2024-10-05 10:27] LABS: Basophils Absolute Auto 0.1 X10*3/uL (0.0-0.2); Basophils Percent Auto 1.4 % (0-2); Hemoglobin 13.1 g/dl (14.0-18.0); Imm Gran Abs Auto 0.03 X10*3/uL (0.00-0.03); Imm Gran Pct Auto 0.4 % (0.0-0.4); Lymphocytes Absolute Auto 2.1 X10*3/uL (1.2-4.9); Lymphocytes Percent Auto 26.8 % (20-40); Mean Corpuscular HGB Conc 33.6 g/dl (31.0-36.0); Mean Corpuscular Hemoglobin 29.9 pg (27.0-33.0); Mean Platelet Volume 10.1 fL (9.4-12.4); Monocytes Absolute Auto 0.8 X10*3/uL (0.1-1.2); Monocytes Percent Auto 10.6 % (2-11); Neutrophils Absolute Auto 3.9 x10*3/uL (2.0-8.3); Neutrophils Percent Auto 48.8 % (45-73); Platelet Count 197 X10*3/uL (160-400); Red Blood Count 4.38 X10*6/uL (4.60-5.80); White Blood Count 7.9 X10*3/uL (4.8-10.8)
[2024-10-05 10:56] LABS: Alanine Aminotransferase 9 U/L (0-40); Albumin Level 3.6 g/dL (3.5-5.0); Anion Gap 10 (12-20); Aspartate Amino Transferase 20 U/L (5-37); Bilirubin Total 0.6 mg/dL (0.0-1.0); Blood Urea Nitrogen 29 mg/dL (9-16); Calcium 8.8 mg/dL (8.4-10.2); Carbon Dioxide 25 mmol/L (22-29); Chloride 109 mmol/L (96-108); Cholesterol 158 mg/dL (<200); Estimated Glomerular Filt Rate 52; Glucose Fasting 114 mg/dL (60-99); HDL Cholesterol 51 mg/dL (>40); LDL Cholesterol Calculated 94 mg/dL (<100); Potassium 4.4 mmol/L (3.3-5.1); Sodium 140 mmol/L (135-145); Total Protein 6.8 g/dL (6.5-8.0); Triglycerides 68 mg/dL (<150)
[2024-10-05 11:04] LABS: Estimated Average Glucose 120 mg/dL; Hemoglobin A1c % 5.8 % (<6.0)
[2024-10-05 11:18] LABS: TSH reflex Free T4 1.79 uIU/mL (0.32-4.0)
[2024-10-05 11:56] LABS: Alkaline Phosphatase 96 U/L (39-117)
== END 2024-10-05 08:16 | disposition home or self-care (01) ==
LOC: HO.HMGCLDS 08:15
PROVIDERS: PCP Internal Medicine; Visit Provider Internal Medicine
DX: I10 Essential (primary) hypertension (principal); E05.90 Thyrotoxicosis, unspecified without thyrotoxic crisis or storm; E78.5 Hyperlipidemia, unspecified; R73.9 Hyperglycemia, unspecified
CPT/HCPCS: 36415; 80053; 80061; 83036; 84443; 85025

== ENCOUNTER 2024-10-25 10:31 | Outpatient (AMB) | payer MEDICARE, SELFPAY ==
[2024-10-25 10:33] VITALS: BP 110/66; PULSE 68; RESP 18; O2SAT 96; BMI 29.4
--- NOTE | 2024-10-25 10:33 | A.OFFPC_ITS ---
Vital Signs 10/25/24 10:33 Height 5 ft 7 in Weight 188 lb BMI 29.4 BP 110/66 Blood Pressure Location Lt brachial Position Sitting Respiration 18 Pulse 68 Pulse Source Pulse Oximeter Pulse Oximetry (%) 96 Oxygen Delivery Method Room Air Intake Visit Reasons: 6 months follow up visit on labs-update ins Intake Note: Pt is here today for 6 months follow up visit. Allergies No Known Allergies Allergy (Verified 10/25/24 10:33) Medication List - Last Reconciled 10/25/24 by Elizabeth Gee MD amlodipine 10 mg PO DAILY apixaban (Eliquis) 5 mg PO BID methimazole 5 mg PO DAILY pravastatin 20 mg PO DAILY tamsulosin 0.4 mg PO DAILY Tobacco use date assessed: 10/25/24 Fall risk assessment: No Falls in past year Last assessed Fall Risk: 10/25/24 Dental Screening Dental Screen Date: 10/25/24 Did you have a dental visit in the last 12 months?: No Did you have a dental problem in the last 6 months where you did not have access to dental care?: No Was dental information given to patient?: Patient declined HPI 6 months follow up visit on labs-update ins HPI0 Details Patient presents for the follow-up of hypertension hyperlipidemia hypothyroidism controlled on methimazole. [facility] Medical History DVT (deep venous thrombosis) Pain and swelling of right lower extremity Annual physical exam Hyperthyroidism BPH (benign prostatic hyperplasia) HTN (hypertension) Surgical History No pertinent past surgical history Family History Father No problems noted. Mother No problems noted. Social History Housing: House Patient Tobacco Use Status: Former Tobacco user (15 years ago) e-Cigarette/Vaping Use: Never Used Second Hand Smoke Exposure: No service: No Current occupational status: retired Cognitive needs: No Hearing needs: No Vision needs: No Questionnaire PHQ-9 Over the last 2 weeks, how often have you been bothered by any of the following problems? 1. Little interest or pleasure in doing things: not at all 2. Feeling down, depressed, or hopeless: not at all 3. Trouble falling or staying asleep, or sleeping too much: not at all 4. Feeling tired or having little energy: not at all 5. Poor appetite or overeating: not at all 6. Feeling bad about yourself - or that you are a failure or have let yourself or your family down: not at all 7. Trouble concentrating on things, such as reading the newspaper or watching television: not at all 8. Moving or speaking so slowly that other people could have noticed. Or the opposite - being so fidgety or restless that you have been moving around a lot more than usual: not at all 9. Thoughts that you would be better off or of hurting yourself in some way: not at all Total score: 0 Depression Screening Interpretation: Negative Depression Screening Done: Yes 11430 - PHQ-9 Billing: Yes Source: Developed by Drs. Liban Lutz, Jackelyn Mckinley, Prasad Maria and colleagues, with an educational cruz from [employer]. Thrive Questionnaire Date Thrive assessed: 10/25/24 I am a: Patient What is your living situation today?: I have a steady place to live Within the past 12 months, did the food you bought not last and you didn't have the money to get more?: Never true Within the past 12 months, did you worry whether your food would run out before you got money to buy more?: Never true Do you have trouble paying for medicines?: No Do you have trouble getting transportation to medical appointments?: No Do you have trouble paying your heating and electricity bill?: No Do you have trouble taking care of your child, family member or friend?: No Do you have trouble with day-to-day activities such as bathing, preparing meals, shopping, managing finances, etc.?: No Are you currently unemployed and looking for a job?: No Are you interested in more education?: No Please select the resources that you would like help with: None THRIVE Score: 0 AUDIT C Alcohol Use Questionnaire (AUDIT-C) 1. How often do you have a drink containing alcohol?: Never 3. How often do you have six or more drinks on one occasion?: Never Total Score: 0 TORI-7 AMB Questionnaire TORI-7 Date TORI - 7 assessed: 10/25/24 Feeling nervous, anxious, or on edge: 0 = Not at all Not being able to stop or control worryin = Not at all Worrying too much about different things: 0 = Not at all Trouble relaxin = Not at all Being so restless that it is hard to sit still: 0 = Not at all Becoming easily annoyed or irritable: 0 = Not at all Feeling afraid as if something awful might happen: 0 = Not at all Total TORI-7 score (0-4 normal; 5-9 mild; 10-14 moderate; 15-21 severe): 0 Source: Developed by Drs. Liban Lutz, Jackelyn Mckinley, Prasad Maria and colleagues, with an educational cruz from [employer]. TORI-7 Assessment Billing TORI-7 Assessment Tool: TORI-7 Assessment 25257 Review of Systems Const All systems reviewed & are unremarkable except as noted in HPI and below Eyes Reports no additional complaints ENT Reports no additional complaints Card Reports no additional complaints Resp Reports no additional complaints GI Reports no additional complaints Reports no additional complaints Physical exam (Primary Care) Vital Signs: Last Vital Signs Pulse 68 10/25/24 10:33 Resp 18 10/25/24 10:33 BP 110/66 10/25/24 10:33 Pulse Ox 96 10/25/24 10:33 Oxygen Delivery Method Room Air 10/25/24 10:33 BMI result Body Mass Index 29.4 Tobacco/Smoking Status: Tobacco use Status Tobacco use date assessed 10/25/24 10/25/24 10:34 Patient Tobacco Use Status Former Tobacco user (15 10/25/24 10:34 years ago) e-Cigarette/Vaping Use Never Used 10/25/24 10:34 PHQ-9: PHQ-9 Score PHQ-9: Total score 0 10/25/24 11:10 Depression Screening Interpretation: Negative Thrive Assessment: Date of Thrive Assessment Date Thrive assessed 10/25/24 10/25/24 10:46 Const General: no acute distress HENMT Head: Yes normal to inspection Neck Neck: Yes supple Resp Effort & Inspection: normal respiratory effort Auscultation: clear to auscultation bilaterally Cardio Rhythm: regular rhythm Heart sounds: S1 normal heart sound present and S2 normal heart sound present GI Inspection: Yes normal to inspection Palpation (GI): Soft to palpation Percussion: Yes normal to percussion Auscultation: normal bowel sounds Immunizations pneumoc 20-dana conj-dip cr(PF) 0.5 mL IM syringe Performing Provider: Elizabeth Gee MD Performing Location: [facility] [facility] Administered by: LISS Goldberg on 10/25/24 11:10 Dose Route Admin Location Dispensed Lot Number Expiration Date [facility] Management Advisor 0.5 mL IM Left Deltoid 0.5 mL [id number] 07/30/25 [employer] Total Dispensed Waste 0.5 mL 0 % VIS Given Date VIS Provided VIS Publication Date 10/25/24 Single Vaccine 24 Eligibility Eligibility Date Funding Source Not [facility] Eligible 10/25/24 Private Coding Level of Care Code Est Pt Level 4 (04140) Diagnoses HTN (hypertension) I10 Hyperlipidemia E78.5 Hyperthyroidism E05. Additional Codes TORI-7 Assessment Billing - TORI-7 Assessment Tool: TORI-7 Assessment 46005 ([id number]) PHQ-9 - 39596 - PHQ-9 Billing: Yes ([id number]) Assessment & Plan Assessment & Plan (1) HTN (hypertension): Code(s): I10 - Essential (primary) hypertension Category: Medical Plan: Continue amlodipine (2) Hyperlipidemia: Code(s): E78.5 - Hyperlipidemia, unspecified Category: Medical Plan: Continue statin (3) Hyperthyroidism: Code(s): E05.90 - Thyrotoxicosis, unspecified without thyrotoxic crisis or storm Category: Medical Plan: Continue methimazole follow-up in 6 months Orders: Orders Comprehensive [place]. Panel Fast 6 Months E05.90 - Thyrotoxicosis, unspecified without thyrotoxic crisis or storm, E78.5 - Hyperlipidemia, unspecified, I10 - Essential (primary) hypertension Complete Blood Count Auto Diff 6 Months E05.90 - Thyrotoxicosis, unspecified without thyrotoxic crisis or storm, E78.5 - Hyperlipidemia, unspecified, I10 - Essential (primary) hypertension IRON PROFILE 6 Months E05.90 - Thyrotoxicosis, unspecified without thyrotoxic crisis or storm, E78.5 - Hyperlipidemia, unspecified, I10 - Essential (primary) hypertension TSH reflex Free T4 6 Months E05.90 - Thyrotoxicosis, unspecified without thyrotoxic crisis or storm, E78.5 - Hyperlipidemia, unspecified, I10 - Essential (primary) hypertension Vitamin B12 and Folate 6 Months E05.90 - Thyrotoxicosis, unspecified without thyrotoxic crisis or storm, E78.5 - Hyperlipidemia, unspecified, I10 - Essential (primary) hypertension Pneumococcal 20 Immunization Today Z23 - Encounter for immunization
== END 2024-10-25 11:30 | disposition home or self-care (01) ==
LOC: HO.HMCC 10:32
PROVIDERS: PCP Internal Medicine; Visit Provider Internal Medicine
DX: I10 Essential (primary) hypertension (principal); E78.5 Hyperlipidemia, unspecified; E05.90 Thyrotoxicosis, unspecified without thyrotoxic crisis or storm; Z23 Encounter for immunization

== ENCOUNTER → 2024-10-25 10:31 | Outpatient (BNVA) | payer MEDICARE, SELFPAY | PROVIDERS: PCP Internal Medicine; Visit Provider Internal Medicine | DX: Z23 Encounter for immunization (principal); I10 Essential (primary) hypertension; E78.5 Hyperlipidemia, unspecified; E05.90 Thyrotoxicosis, unspecified without thyrotoxic crisis or storm | CPT/HCPCS: 90471; 90677; 96127; 99212 ==

== ENCOUNTER 2025-04-12 09:54 | Outpatient (REF) | payer MEDICARE, SELFPAY ==
[2025-04-12 13:54] LABS: MANUAL DIFF FLAG NO
[2025-04-12 14:01] LABS: Hematocrit 43.0 % (42.0-52.0); Hemoglobin 14.1 g/dl (14.0-18.0); Imm Gran Abs Auto 0.04 X10*3/uL (0.00-0.03); Imm Gran Pct Auto 0.5 % (0.0-0.4); Lymphocytes Absolute Auto 2.4 X10*3/uL (1.2-4.9); Mean Corpuscular HGB Conc 32.8 g/dl (31.0-36.0); Mean Corpuscular Hemoglobin 29.4 pg (27.0-33.0); Mean Corpuscular Volume 89.8 fL (80.0-98.0); NRBC Abs Auto 0.000 X10*3/uL (0.0-0.012); NRBC Pct Auto 0.0 /100WBC (0.0-0.2); Platelet Count 204 X10*3/uL (160-400); Red Blood Count 4.79 X10*6/uL (4.60-5.80); White Blood Count 7.9 X10*3/uL (4.8-10.8)
[2025-04-12 14:47] LABS: Alanine Aminotransferase 11 U/L (0-40); Albumin Level 4.0 g/dL (3.5-5.0); Alkaline Phosphatase 92 U/L (39-117); Anion Gap 11 (12-20); Aspartate Amino Transferase 20 U/L (5-37); Blood Urea Nitrogen 22 mg/dL (9-16); Calcium 9.0 mg/dL (8.4-10.2); Carbon Dioxide 26 mmol/L (22-29); Chloride 107 mmol/L (96-108); Estimated Glomerular Filt Rate 50; Iron 89 mcg/dL (45-160); Percent Iron Saturation 38 % (15-50); Potassium 4.7 mmol/L (3.3-5.1); Sodium 139 mmol/L (135-145); Total Iron Binding Capacity 237 mcg/dL (228-428); Total Protein 7.4 g/dL (6.5-8.0); Unsaturated Iron Binding 148 ug/dL
[2025-04-12 15:12] LABS: Folate 8.8 ng/mL (> or = 4.0); Vitamin B12 207 pg/mL (200-900)
== END 2025-04-12 09:55 | disposition home or self-care (01) ==
LOC: HO.HMGCLDS 09:54
PROVIDERS: PCP Internal Medicine; Visit Provider Internal Medicine
DX: I10 Essential (primary) hypertension (principal); E78.5 Hyperlipidemia, unspecified; E05.90 Thyrotoxicosis, unspecified without thyrotoxic crisis or storm; Z13.0 Encounter for screening for diseases of the blood and blood-forming organs and certain disorders involving the immune mechanism
CPT/HCPCS: 36415; 80053; 82607; 82746; 83540; 84443; 85025

== ENCOUNTER 2025-04-19 12:01 | Outpatient (AMB) | payer MEDICARE, SELFPAY ==
[2025-04-19 12:01] VITALS: BP 126/62; PULSE 63; RESP 16; TEMP 36.8; O2SAT 97; BMI 29.6
--- NOTE | 2025-04-19 12:01 | MHC.PC.OV ---
Vital Signs 04/19/25 12:01 04/19/25 12:10 Height 5 ft 7 in Weight 189 lb BMI 29.6 BP 126/62 104/62 Blood Pressure Location Lt brachial Rt brachial Position Sitting Sitting Respiration 16 Pulse 63 Pulse Source Pulse Oximeter Temp 98.2 F Temp Source Oral Pulse Oximetry (%) 97 Oxygen Delivery Method Room Air Intake Visit Reasons: Annual PE - see comments Intake Note: Pt is here today for PE. Dinkey Brakeman Required: No Allergies No Known Allergies Allergy (Verified 04/19/25 12:02) Medication List - Last Reconciled 04/19/25 by Elizabeth Gee MD amlodipine 10 mg PO DAILY apixaban (Eliquis) 5 mg PO BID methimazole 5 mg PO DAILY pravastatin 20 mg PO DAILY tamsulosin 0.4 mg PO DAILY Tobacco use date assessed: 10/25/24 Fall risk assessment: No Falls in past year Last assessed Fall Risk: 04/19/25 Dental Screening Dental Screen Date: 10/25/24 HPI Annual PE - see comments HPI Details Patient presents for PE PFSH Medical History (Updated 04/19/25 @ 12:49 by Elizabeth Gee MD) DVT (deep venous thrombosis) Pain and swelling of right lower extremity Annual physical exam Hyperthyroidism BPH (benign prostatic hyperplasia) HTN (hypertension) Surgical History No pertinent past surgical history Family History Father No problems noted. Mother No problems noted. Social History Housing: House Patient Tobacco Use Status: Former Tobacco user (15 years ago) e-Cigarette/Vaping Use: Never Used Second Hand Smoke Exposure: No service: No Current occupational status: retired Cognitive needs: No Hearing needs: No Vision needs: No Questionnaire Thrive Questionnaire Date Thrive assessed: 10/25/24 TORI-7 AMB Questionnaire TORI-7 Date TORI - 7 assessed: 10/25/24 Source: Developed by Drs. Liban Lutz, Jackelyn Mckinley, Prasad Maria and colleagues, with an educational cruz from [employer]. Review of Systems Const All systems reviewed & are unremarkable except as noted in HPI and below Eyes Reports no additional complaints ENT Reports no additional complaints Card Reports no additional complaints Resp Reports no additional complaints GI Reports no additional complaints Reports no additional complaints Physical exam (Primary Care) Vital Signs: Last Vital Signs Temp 98.2 F 04/19/25 12:01 Pulse 63 04/19/25 12:01 Resp 16 04/19/25 12:01 BP 104/62 04/19/25 12:10 Pulse Ox 97 04/19/25 12:01 Oxygen Delivery Method Room Air 04/19/25 12:01 BMI result Body Mass Index 29.6 Tobacco/Smoking Status: Tobacco use Status Tobacco use date assessed 10/25/24 04/19/25 12:02 Patient Tobacco Use Status Former Tobacco user (15 04/19/25 12:02 years ago) e-Cigarette/Vaping Use Never Used 04/19/25 12:02 Thrive Assessment: Date of Thrive Assessment Date Thrive assessed 10/25/24 04/19/25 12:02 Const General: no acute distress HENMT Head: Yes normal to inspection Face and sinus: Yes normal facial exam Eyes General: appearance normal, both eyes and all related structures Neck Neck: Yes no lymphadenopathy and Yes supple Resp Effort & Inspection: normal respiratory effort Auscultation: clear to auscultation bilaterally Cardio Rhythm: regular rhythm Heart sounds: S1 normal heart sound present and S2 normal heart sound present GI Inspection: Yes normal to inspection Palpation (GI): Soft to palpation Percussion: Yes normal to percussion Auscultation: normal bowel sounds Coding Level of Care Code Est Pt Prev Care >65y(70414) Diagnoses DVT (deep venous thrombosis) I82.409 Hyperlipidemia E78.5 HTN (hypertension) I10 Hyperglycemia R73.9 Hyperthyroidism E05.90 Assessment & Plan Assessment & Plan (1) DVT (deep venous thrombosis): Comment: HX of recurrent DVT, 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 - Thyrotoxicosis, unspecified without thyrotoxic crisis or storm Category: Medical Plan: Continue methimazole monitor TSH Orders: Orders Comprehensive [place]. Panel Fast 6 Months E05. - Thyrotoxicosis, unspecified without thyrotoxic crisis or storm, E78.5 - Hyperlipidemia, unspecified, I10 - Essential (primary) hypertension, I82.409 - Acute embolism and thrombosis of unspecified deep veins of unspecified lower extremity, R73.9 - Hyperglycemia, unspecified Complete Blood Count Auto Diff 6 Months E05. - Thyrotoxicosis, unspecified without thyrotoxic crisis or storm, E78.5 - Hyperlipidemia, unspecified, I10 - Essential (primary) hypertension, I82.409 - Acute embolism and thrombosis of unspecified deep veins of unspecified lower extremity, R73.9 - Hyperglycemia, unspecified Lipid Panel 6 Months E0. - Thyrotoxicosis, unspecified without thyrotoxic crisis or storm, E78.5 - Hyperlipidemia, unspecified, I10 - Essential (primary) hypertension, I82.409 - Acute embolism and thrombosis of unspecified deep veins of unspecified lower extremity, R73.9 - Hyperglycemia, unspecified TSH reflex Free T4 6 Months E05.90 - Thyrotoxicosis, unspecified without thyrotoxic crisis or storm, E78.5 - Hyperlipidemia, unspecified, I10 - Essential (primary) hypertension, I82.409 - Acute embolism and thrombosis of unspecified deep veins of unspecified lower extremity, R73.9 - Hyperglycemia, unspecified Vitamin B12 and Folate 6 Months E05.90 - Thyrotoxicosis, unspecified without thyrotoxic crisis or storm, E78.5 - Hyperlipidemia, unspecified, I10 - Essential (primary) hypertension, I82.409 - Acute embolism and thrombosis of unspecified deep veins of unspecified lower extremity, R73.9 - Hyperglycemia, unspecified Hemoglobin A1c 6 Months E05.90 - Thyrotoxicosis, unspecified without thyrotoxic crisis or storm, E78.5 - Hyperlipidemia, unspecified, R73.9 - Hyperglycemia, unspecified Medications: New cyanocobalamin (vitamin B-12) 500 mcg PO DAILY 90 tabs 3RF
[2025-04-19 12:10] VITALS: BP 104/62
== END 2025-04-19 12:54 | disposition home or self-care (01) ==
PROVIDERS: PCP Internal Medicine; Visit Provider Internal Medicine
DX: Z00.00 Encounter for general adult medical examination without abnormal findings (principal); I82.409 Acute embolism and thrombosis of unspecified deep veins of unspecified lower extremity; E78.5 Hyperlipidemia, unspecified; I10 Essential (primary) hypertension; R73.9 Hyperglycemia, unspecified; E05.90 Thyrotoxicosis, unspecified without thyrotoxic crisis or storm

== ENCOUNTER → 2025-04-19 12:01 | Outpatient (BNVA) | payer MEDICARE, SELFPAY | PROVIDERS: PCP Internal Medicine; Visit Provider Internal Medicine | DX: Z00.00 Encounter for general adult medical examination without abnormal findings (principal); E78.5 Hyperlipidemia, unspecified; I10 Essential (primary) hypertension; R73.9 Hyperglycemia, unspecified; E05.90 Thyrotoxicosis, unspecified without thyrotoxic crisis or storm; Z86.718 Personal history of other venous thrombosis and embolism; Z79.01 Long term (current) use of anticoagulants | CPT/HCPCS: 99397 ==